=== PATIENT | male | born 1960 | race Caucasian/White ===

== ENCOUNTER → 2017-05-05 | Outpatient (CLI) | payer MEDICARE ==
[~2017-05-05] MED LIST: ASPIRIN 81M81 MG/TA2 PO; BACTRIM DS 8001 TAB PO; COLACE 100100 MG/CAP PO; COZAAR 25MG25 MG/TAB PO; GLUCOSE TEST ST1 DEV MC; INSULIN 70/3100 U/ML SC; IRON325 M1 PO; LEVAQUIN 5500 MG/TA1 PO; LORTAB 7.5/5001 TAB PO; NORCO 325 MG-7.1 TAB PO; NORVASC 5MG5 MG/TAB PO; NOVOLIN 70/30 710 ML SC; NOVOLOG 100U100 U/M1 SC
[2017-05-05 17:07] LABS: BASO # 0.1 (0.0-0.2); BASO % 0.6 % (0.0-2.0); EOS # 0.2 (0.0-0.7); EOS % 1.9 % (0-4.0); GRAN # 6.8 (1.4-6.5); GRAN % 72.3 % (42.2-75.2); LYMPH # 1.9 (1.2-3.4); LYMPH % 19.7 % (20.0-51.0); MEAN CELL VOLUME 90 fl (80.0-100.0); MEAN CORPUSCULAR HGB CONC 32 g/dl (33.0-37.0); MEAN PLATELET VOLUME 10.2 fl (7.4-10.4); MONO # 0.5 (0.1-0.6); MONO % 5.1 % (1.7-9.3); PLATELET COUNT 283 K/mm3 (130-400); RED BLOOD COUNT 3.34 M/mm3 (4.20-5.60); REDCELL DISTRIBUTION WIDTH-CV 13.5 % (11.5-14.5)
[2017-05-05 17:09] LABS: HEMATOCRIT 30.2 % (42.0-52.0); HEMOGLOBIN 9.5 g/dl (13.5-18.0); MEAN CORPUSCULAR HEMOGLOBIN 28 pg (27.0-31.0)
[2017-05-05 17:19] LABS: ALBUMIN 3.5 gm/dL (3.5-5.0); BILIRUBIN,TOTAL 0.1 mg/dL (0.0-1.0); CALCIUM 9.4 mg/dL (8.4-10.2); CREATININE, serum 1.69 mg/dL (0.66-1.25); POTASSIUM 5.1 mmol/L (3.4-5.0); TOTAL PROTEIN 7.2 gm/dL (6.4-8.2)
[2017-05-06 00:25] LABS: FOLATE (FOLIC ACID) 10.3 ng/mL (7.0-31.4)
== END ==
LOC: COL.LAB 14:55
PROVIDERS: Family Medicine
DX: N18.9 Chronic kidney disease, unspecified (principal); D63.1 Anemia in chronic kidney disease

== ENCOUNTER 2023-05-02 04:00 | Inpatient (IN) | payer MEDICARE ==
[~2023-05-02] VITALS: Ht 188 cm; Wt 81.1 kg
[2023-05-02] VITALS (745 sets, daily range): BP systolic 177–212; BP diastolic 86–117; PULSE 67–82; TEMP 97.7–98.2; O2SAT 81–100
[~2023-05-02 04:00] MED LIST changes: +COREG 25MG25 MG/TAB PO; +GINKGO BILOBA40 M5 PO; +NORVASC 10MG10 MG PO; +RENVELA800 MG PO; +SODIUM BICARBO650 MG PO
[2023-05-02] MEDS ORDERED: Albuterol/Ipratropium 3 MG-0.5 MG/3 ML Neb Soln IH PRN (05:30)
[2023-05-02] MEDS ORDERED: Acetaminophen 325 MG TAB PO PRN (05:30)
[2023-05-02] MEDS ORDERED: Heparin/D5W 250 ML IV SCH (05:30)
[2023-05-02] MEDS ORDERED: cefTRIAXone 1 G in Water For Injection,Sterile 10 ML IV SCH (05:30)
[2023-05-02] MEDS ORDERED: Ondansetron 4 MG/2 ML VIAL IV PRN (05:30)
[2023-05-02] MEDS ORDERED: Heparin 5,000 UNITS/ML 1 ML VIAL IV PRN (05:30)
[2023-05-02] MEDS ORDERED: hydrALAZINE 20 MG/ML 1 ML VIAL IV PRN (05:30)
[2023-05-02] MEDS ORDERED: Glucagon 1 MG VIAL IM PRN (06:00)
[2023-05-02] MEDS ORDERED: Dextrose 50% Water 25 GM/50 ML SYRINGE IV PRN (06:00)
[2023-05-02] MEDS ORDERED: Dextrose (Glucose) 15 GM (4 x 3.75 GM) Chewable TABLET PACK PO PRN (06:00)
[2023-05-02 06:20] LABS: BASO # 0.1 K/mm3 (0.0-0.2); BASO % 0.5 % (0.0-2.0); EOS % 0.3 % (0.0-4.0); GRAN # 10.7 K/mm3 (1.4-6.5); GRAN % 89.8 % (42.2-75.2); LYMPH # 0.7 K/mm3 (1.2-3.4); LYMPH % 6.2 % (20.0-51.0); MEAN CELL VOLUME 96 fl (80.0-100.0); MEAN CORPUSCULAR HGB CONC 35 g/dl (33.0-37.0); MEAN PLATELET VOLUME 10.7 fl (7.4-10.4); MONO # 0.3 K/mm3 (0.1-0.6); MONO % 2.9 % (1.7-9.3); PLATELET COUNT 132 K/mm3 (130-400); RED BLOOD COUNT 2.87 M/mm3 (4.20-5.60); REDCELL DISTRIBUTION WIDTH-CV 13.7 % (11.5-14.5)
[2023-05-02 06:21] LABS: HEMATOCRIT 27.4 % (42.0-52.0); HEMOGLOBIN 9.6 g/dl (13.5-18.0); MEAN CORPUSCULAR HEMOGLOBIN 33 pg (27-31)
[2023-05-02 06:28] LABS: ALBUMIN 3.1 gm/dL (3.4-4.8); BILIRUBIN,TOTAL 0.5 mg/dL (0.2-1.2); CALCIUM 8.4 mg/dL (8.4-10.2); CREATININE, serum 9.13 mg/dL (0.72-1.25); MAGNESIUM 2.4 mg/dL (1.6-2.6); POTASSIUM 4.9 mmol/L (3.5-4.5); TOTAL PROTEIN 6.4 gm/dL (6.2-8.1)
[2023-05-02 06:34] LABS: PARTIAL THROMBOPLASTIN TIME 38.5 SECONDS (26.0-37.0)
[2023-05-02 06:38] LABS: TROPONIN-I 0.038 ng/mL (0.00-0.033)
[2023-05-02] MEDS ORDERED: Sevelamer Carbonate 800 MG TAB PO SCH (08:00)
[2023-05-02] MEDS ORDERED: Insulin Lispro (HumaLOG) SQ SCH (08:00)
[2023-05-02] MEDS ORDERED: Carvedilol 25 MG TAB PO SCH (08:00)
[2023-05-02] MEDS ORDERED: amLODIPine 10 MG TAB PO SCH (09:00)
[2023-05-02] MEDS ORDERED: Sennosides/Docusate 8.6-50 MG TAB PO SCH (09:00)
--- NOTE | 2023-05-02 09:25 | NUR ---
HEAD TO TOE ASSESSMENT COMPLETED. PATIENT IS ALERT AND ORIENTED. REPORTS FEELING "MUCH BETTER THAN LAST NIGHT". PUPILS EQUAL AND REACTIVE. HEART SOUNDS REGULAR WITH S1 AND S2 NOTED. PATIENT HAS DIALYSIS PORT TO RIGHT SIDE OF CHEST AND REPORTS HE RECEIVED DIALYSIS // AND DID RECEIVE DIALYSIS LAST TUESDAY (04/28). LUNG SOUNDS CLEAR BILATERALLY. PATIENT TITRATED DOWN FROM 4L NC TO 2L NC. PATIENT ON HEPARIN DRIP AT THIS TIME. BOWEL SOUNDS ACTIVE X4. PATIENT REPORTS HE DOESN'T PRODUCE MUCH URINE ANYMORE. PATIENT'S PULSES PRESENT BILATERALLY IN UPPER AND LOWER EXTREMITIES. PATIENT REFUSED INSULIN THIS MORNING STATING HE DOESN'T CHECK HIS SUGARS OR TAKE INSULIN AT HOME SINCE HE RECEIVED DIALYSIS EVERY OTHER DAY. OTHER MEDICATIONS ADMINISTERED PER EMAR. BED IN A LOW POSITION. CALL LIGHT WITHIN REACH.
--- NOTE | 2023-05-02 09:33 | NUR ---
RECEIVED REPORT FROM NIGHTSHIFT RNJULIANNE. PATIENT RESTING IN BED WITH EYES CLOSED AT THIS TIME. BED IN A LOW POSITION. CALL LIGHT WITHIN REACH.
[2023-05-02] MEDS ORDERED: LASIX 40MG TABL40 MG PO (09:55)
[2023-05-02] MEDS ORDERED: ADVIL200 MG PO (09:56)
[2023-05-02] MEDS ORDERED: LORazepam 0.5 MG TAB PO PRN (10:45)
[2023-05-02] MEDS ORDERED: Albumin (Human) 100 ML IV SCH (11:45)
[2023-05-02] MEDS ORDERED: Heparin 1,000 UNITS/ML 10 ML Multi-Dose VIAL IV SCH (11:45)
--- NOTE | 2023-05-02 13:11 | NUR ---
beam worker met with pt to complete intake information. Pt reports he lives alone in [place], [place]. He sees Dr. Cory Waller for PCP needs. He obtains medications from [facility] with no difficulties. Pt states he is independent with ADLS and has no DME, but recently his back pain has caused more issues getting dressed. Pt states his brother, Johnny [phone] is his best contact and DPOA-HC is on file. SW notes PT/OT are pending Discharge Plan: blanca
--- NOTE | 2023-05-02 15:11 | NUR ---
PATIENT RECEIVED DIALYSIS FROM 1210 TO 1510 IN ROOM. DIALYSIS NURSE, DAVID PRESENT DURING DURATION OF DIALYSIS.
--- NOTE | 2023-05-02 15:58 | NUR ---
Dialysis Note Pt tx performed in ICU. Uf goal set for 5.0 kg and 5.0 kg removed. Pt tolerated tx well. Report given to primary RN.
[2023-05-02] MEDS ORDERED: LORazepam 2 MG/ML 1 ML VIAL IV PRN (20:15)
--- NOTE | 2023-05-02 20:47 | NUR ---
PT AWAKE AND RESTING IN BED. NOTICED PT HAS 1 IN S2 WOUND ON BOTTOM OF LEFT FOOT. DRESSING HAS BEEN CLEANING AND DRESSED. PT ALSO REFUSES ANY INSULIN ADMINISTRATION. VITALS SIGNS STABLE. PLAN OF CARE ONGOING.
[2023-05-03] VITALS (791 sets, daily range): BP systolic 156–194; BP diastolic 67–98; PULSE 60–78; TEMP 97.6–98.7; O2SAT 86–100
[2023-05-03 04:54] LABS: BASO # 0.1 K/mm3 (0.0-0.2); BASO % 1.1 % (0.0-2.0); EOS # 0.1 K/mm3 (0.0-0.7); EOS % 1.7 % (0.0-4.0); GRAN # 4.9 K/mm3 (1.4-6.5); LYMPH % 14.6 % (20.0-51.0); MEAN CELL VOLUME 97 fl (80.0-100.0); MEAN CORPUSCULAR HGB CONC 34 g/dl (33.0-37.0); MONO # 0.5 K/mm3 (0.1-0.6); MONO % 7.3 % (1.7-9.3); PLATELET COUNT 116 K/mm3 (130-400); RED BLOOD COUNT 2.84 M/mm3 (4.20-5.60); REDCELL DISTRIBUTION WIDTH-CV 13.8 % (11.5-14.5)
[2023-05-03 05:00] LABS: HEMATOCRIT 27.4 % (42.0-52.0); HEMOGLOBIN 9.3 g/dl (13.5-18.0); MEAN CORPUSCULAR HEMOGLOBIN 33 pg (27-31)
[2023-05-03 05:17] LABS: CHOLESTEROL RISK RATIO 3.1; CREATININE, serum 6.53 mg/dL (0.72-1.25); MAGNESIUM 2.2 mg/dL (1.6-2.6); POTASSIUM 4.1 mmol/L (3.5-4.5)
[2023-05-03 05:37] LABS: THYROID STIMULATING HORMONE 2.831 uIU/mL (0.350-4.940)
--- NOTE | 2023-05-03 07:46 | NUR ---
OVERALL, PATIENT IS PLEASANT THIS MORNING. ONLY COMPLAINT IS INSOMNIA. BLOOD PRESSURE IS REMAINING IN 180s SYSTOLIC - MORNING BLOOD PRESSURE MEDICATIONS GIVEN; WILL CONTINUE TO MONITOR TO ENSURE A DECREASE IN SYSTOLIC VALUE. WOUNDS NOTED ON BOTTOM OF LEFT FOOT WELL A SMALL SPOT O THE COCCYX. WILL NOTIFY PROVIDER DURING ROUNDS. BED IN LOW POSITION AND CALL LIGHT WITHIN REACH. PATIENT DOES NOT NEED ANYHING AT THIS TIME.
--- NOTE | 2023-05-03 08:10 | NUR ---
PATIENT EXPLAINED TO RN THAT "I GET STAPH EVERY TIME I GO TO WOUND CARE, SO I HAVE JUST STARTED DOING IT MYSELF." RN ASKED PATIENT HOW HE CARES FOR HIS WOUNDS AND PATIENT STATED "I TAKE 100% ALLCOHOL AND PUT IT ON THE WOUND AND THEN TAKE A STRAIGHT RAZOR BLADE AND DEBRIDE IT. IT LOOKS MUCH BETTER IF YOU GET THAT RAISED STUFF OFF OF IT."
--- NOTE | 2023-05-03 09:20 | NUR ---
Initial visit; Patient thanked Vice President Quality for looking in on him and offering Spiritual Care. Patient said he is having trouble sleeping and is trying to sleep sitting up. Vice President Quality wished patient well and offered God's blessings.
[2023-05-03] MEDS ORDERED: Furosemide 40 MG TAB PO SCH (10:30)
--- NOTE | 2023-05-03 10:41 | NUR ---
warm in worker was informed pt will likely discharge tomorrow. ARIN spoke with PT Jaimie who reports pt is safe to discharge home, but she is reccomending a FWW due to unsteadiness. ARIN met with pt who stated he has a FWW and crutches at home. He reports the unsteadiness was due to not having his tennis shoes. Pt reports he has grab bars and a shower chair he utilizes due to missing toes causing balance issues. Pt endorses he feels safe to discharge home and does not need a FWW. Pt went on to state he was waiting to get set up at the pain clinc. SW provide there is a pain clinic in the hospital and provided information on the location. Pt reports he has been having trouble getting seen, so he will stop by once discharged. ARIN further discussed Life Alert device due to pt living alone and his brother not being nearby. Pt states he will look into this on [employer]. Discharge Plan: Home tomorrow
[2023-05-03] MEDS ORDERED: cloNIDine 0.1 MG TAB PO SCH (12:26)
--- NOTE | 2023-05-03 16:32 | NUR ---
PATIENT TRANSFERRED TO MEDICAL FLOOR AT THIS TIME. PATIENT REPORT CALLED TO RNBRETT, BEFORE TRANSFER. PATIENT ON ROOM AIR AND NOT IN DISTRESS AT THIS TIME.
--- NOTE | 2023-05-03 17:00 | NUR ---
PATIENT ARRIVED TO MEDICAL FLOOR FROM ICU AT APPROX 1645. PATIENT IS ALERT AND ORIENTED.
--- NOTE | 2023-05-03 18:41 | NUR ---
THIS NURSE OBTAINED ORDER FOR K PAD, PATIENT WAS COMPLAINING OF BACK PAIN. PATIENT STATES HE IS FRUSTRATED WITH NOT BEING ABLE TO GET STRONGER PAIN MEDICATION THAN TYLENOL.
--- NOTE | 2023-05-03 18:55 | NUR ---
PATIENT RESTING IN BED WITH TV OFF WITH NO FAMILY PRESENT WITH NO ACUTE DISTRESS NOTED. PATIENT ON ROOM AIR. INT TO LEFT FOREARM INTACT WITH NO COMPLICATIONS NOTED. RIGHT IJ DIALYSIS CATHETER INTACT WITH NO COMPLICATIONS NOTED. PATIETN C/O BACK PAIN. K PAD SWITCHED OUT DUE TO LEAKING. NEW K PAD WORKING WITH NO COMPLICATIONS. PATIENT CARE ASSUMED FROM PETEY AT THIS TIME. PATIENT DENIES ANY OTHER NEEDS. BED IN LOW POSITION WITH WHEELS LOCKED WITH RAILS UP X3 AND CALL LIGHT WITHIN REACH.
--- NOTE | 2023-05-03 20:20 | NUR ---
PATIENT RESTING IN BED WITH TV ON WITH NO FAMILY PRESENT WITH NO ACUTE DISTRESS NOTED. PATIENT ON ROOM AIR. ASSESSMENT AND MEDICATION ADMINSITRATION COMPLETED AT THIS TIME. PATIENT TOLERATED WELL. INT TO LEFT FOREARM INTACT WITH NO COMPLICATIONS NOTED. PATIENT REQUEST A COUPLE OF BLANKETS. WARM BLANKET AND REGULAR BLANKET GIVEN. PATIENT DENIES ANY OTHER NEEDS. BED IN LOW POSITION WITH WHEELS LOCKED WITH RAILS UP X3 AND CALL LIGHT WITHIN REACH.
[2023-05-03] MEDS ORDERED: Melatonin 3 MG TAB PO SCH (21:00)
[2023-05-03] MEDS ORDERED: Zolpidem 5 MG TAB PO SCH (21:00)
[2023-05-04 04:03] VITALS: BP 188/86; PULSE 63; TEMP 98.3
--- NOTE | 2023-05-04 05:45 | NUR ---
PATIENT RESTING IN BED WITH TV ON WITH NO ACUTE DISTRESS NOTED. PATIENT ON ROOM AIR. MEDICATION ADMINISTRATION COMPLETED AT THIS TIME. PATIENT TOLERATED WELL. PATIENT REQUESTED CUP OF ICE WATER AND TYLENOL. BOTH GIVEN. PATIENT DENIES ANY OTHER NEEDS AT THIS TIME. BED IN LOW POSITION WITH WHEELS LOCKED WITH RAILS UP X3 AND CALL LIGHT WITHIN REACH.
[2023-05-04] MEDS ORDERED: Heparin 1,000 UNITS/ML 10 ML Multi-Dose VIAL IV SCH (06:30)
[2023-05-04] MEDS ORDERED: Heparin 1,000 UNITS/ML 10 ML Multi-Dose VIAL ICA SCH (06:30)
[2023-05-04] MEDS ORDERED: NS 1,000 ML IV SCH (06:30)
[2023-05-04 06:49] LABS: MEAN CELL VOLUME 101 fl (80.0-100.0); MEAN CORPUSCULAR HGB CONC 32 g/dl (33.0-37.0); MEAN PLATELET VOLUME 11.3 fl (7.4-10.4); PLATELET COUNT 123 K/mm3 (130-400); RED BLOOD COUNT 2.68 M/mm3 (4.20-5.60); REDCELL DISTRIBUTION WIDTH-CV 13.8 % (11.5-14.5)
[2023-05-04 06:50] LABS: HEMATOCRIT 27.1 % (42.0-52.0); HEMOGLOBIN 8.7 g/dl (13.5-18.0); MEAN CORPUSCULAR HEMOGLOBIN 32 pg (27-31)
[2023-05-04 07:01] LABS: CALCIUM 8.6 mg/dL (8.4-10.2); CREATININE, serum 8.94 mg/dL (0.72-1.25); POTASSIUM 4.3 mmol/L (3.5-4.5)
[2023-05-04 07:49] VITALS: BP 182/80; PULSE 59
[2023-05-04] MEDS ORDERED: CATAPRES 0.1MG0.1 MG PO (09:12)
--- NOTE | 2023-05-04 10:48 | NUR ---
Initial visit; Patient out for Dialysis. Clothes Drier Repairer left card offering God's blessings, wishing him well and information regarding the availability of Spiritual Care at [facility].
--- NOTE | 2023-05-04 10:56 | NUR ---
Dialysis Note Pt arrived to tx via WC. Uf goal set for 3.0 kg and incresed to 3.5 d/t HTN. pt tolerated tx well and was dcd back to room.
--- NOTE | 2023-05-04 10:58 | NUR ---
ASSESSMENT COMPLETE. PATIENT RETURNED FROM DIALYSIS, DENIES ANY HEADACHE, DIZZINESS, SHORTNESS OF BREATH. STATES HE IS EAGER TO BE DISCHARGED. SITTING UP IN BED EATING BREAKFAST AT THIS TIME.
[2023-05-04 11:28] VITALS: BP 208/89; PULSE 67; TEMP 97.8
--- NOTE | 2023-05-04 11:52 | NUR ---
PATIENT RECEIVED DISCHARGE PAPERWORK. ACKNOWLEDGED UNDERSTANDING OF FOLLOW UP APPOINTMENTS, MEDICATIONS ADDED. IV DISCONTINUED. PATIENT STATED HIS FRIEND WILL BE PICKING HIM UP. NO ISSUES.
--- NOTE | 2023-05-04 12:09 | NUR ---
DISCHARGE INSTRUCTIONS PROVIDED AND DISCUSSED. ADVISED THAT HIS DIALYSIS CENTER WILL BE CONTACTING HIM TO SCHEDULE HIS VISITS. IV ACCESS DISCONTINUED AT THIS TIME. PATIENT STATED HIS RIDE WILL BE HERE SHORTLY TO PICK HIM UP AND HE WILL LET US KNOW WHEN THEY ARRIVE
--- NOTE | 2023-05-04 12:35 | NUR ---
1200-PATIENT DISCHARGED AND ESCORTED TO EXIT BY NURSING STAFF
== END 2023-05-04 12:00 | disposition home or self-care (01) | DRG 640 ==
LOC: IMCU 04:00 → ICU 04:54 → MEDICAL 05-03 16:45
PROVIDERS: Internal Medicine; Physician Assistant; ADMIT Internal Medicine
PROC: 5A1D70Z Performance of Urinary Filtration, Intermittent, Less than 6 Hours Per Day (ICD-10-PCS; principal; 2023-05-02)
DX: E87.70 Fluid overload, unspecified (principal); J81.0 Acute pulmonary edema; J96.01 Acute respiratory failure with hypoxia; N18.6 End stage renal disease; I12.0 Hypertensive chronic kidney disease with stage 5 chronic kidney disease or end stage renal disease; R79.89 Other specified abnormal findings of blood chemistry; D72.829 Elevated white blood cell count, unspecified; E11.22 Type 2 diabetes mellitus with diabetic chronic kidney disease; I08.1 Rheumatic disorders of both mitral and tricuspid valves; I16.0 Hypertensive urgency; Z99.2 Dependence on renal dialysis; Z79.82 Long term (current) use of aspirin; Z79.899 Other long term (current) drug therapy
CPT/HCPCS: J0360; J0696; J1644; J1815; J2060; J7030; P9047; Q3014

== ENCOUNTER 2023-06-28 11:52 | Day surgery (SDC) | payer MEDICARE ==
[~2023-06-28] VITALS: Ht 188 cm; Wt 78.2 kg
[~2023-06-28 11:52] MED LIST changes: +ADVIL200 MG PO; +CATAPRES 0.1MG0.1 MG PO; +LASIX 40MG TABL40 MG PO; +NS 1,000 ML IV SCH
[2023-06-28] MEDS ORDERED: ADVIL200 MG PO (12:30)
[2023-06-28 13:00] VITALS: BP 191/87; PULSE 59; TEMP 97.9
[2023-06-28 13:10] LABS: CALCIUM 9.4 mg/dL (8.4-10.2); CREATININE, serum 7.15 mg/dL (0.72-1.25); POTASSIUM 5.2 mEq/L (3.5-4.5)
[2023-06-28] MEDS ORDERED: fentaNYL 50 MCG/ML 2 ML VIAL ONE (13:14)
[2023-06-28] MEDS ORDERED: Ondansetron 4 MG/2 ML VIAL ONE (13:17)
[2023-06-28] MEDS ORDERED: NS 10 ML IV ONE (13:17)
[2023-06-28] MEDS ORDERED: dexAMETHasone 10 MG/ML VIAL ONE (13:17)
[2023-06-28] MEDS ORDERED: Lidocaine PF 2% (20 MG/ML) 5 ML VIAL ONE (13:17)
[2023-06-28] MEDS ORDERED: Glycopyrrolate 0.2 MG/ML 1 ML VIAL ONE (13:17)
[2023-06-28] MEDS ORDERED: fentaNYL 50 MCG/ML 1 ML SYRINGE/VIAL [PACU/SDC ONLY] IV PRN (14:00)
[2023-06-28] MEDS ORDERED: droPERidol 2.5 MG/ML 2 ML VIAL IV PRN (14:00)
[2023-06-28] MEDS ORDERED: HYDROmorphone 1 MG/1 ML SYRINGE [PACU/SDC ONLY] IV PRN (14:00)
[2023-06-28] MEDS ORDERED: Ondansetron 4 MG/2 ML VIAL IV PRN ×2 (14:00→15:15)
[2023-06-28] MEDS ORDERED: hydrALAZINE 20 MG/ML 1 ML VIAL IV PRN (14:00)
[2023-06-28] MEDS ORDERED: Topical Skin Adhesive 1 EACH (1 ML) TOP ONE (15:00)
[2023-06-28 15:07] VITALS: BP 127/63; PULSE 59; TEMP 98.6
[2023-06-28] MEDS ORDERED: NORCO 325 MG-51 TAB PO (15:10)
[2023-06-28 15:15] VITALS: BP 129/82; PULSE 58
[2023-06-28] MEDS ORDERED: Acetaminophen 325 MG TAB PO PRN (15:15)
[2023-06-28 15:30] VITALS: BP 172/68; PULSE 61
[2023-06-28 15:45] VITALS: BP 171/61; PULSE 61
--- NOTE | 2023-06-28 16:33 | NUR ---
1507 Patient returned to bay 8. Received report from SLIM Dillard and Ryan Castillo CRNA. Patient is drowsey, but wakes and answers questions appropriately. 1520 Patient given water, Coke and ice-cream for a PO challenge. Tolerated well. 1605Physician discharge instructions and printed patient educational materials reviewed with the patient. Questions invited and answered. Patient to lobby via wheelchair for a ride home with friend in [place].
== END 2023-06-28 16:15 | disposition home or self-care (01) ==
LOC: SDCO 11:52
PROVIDERS: Surgery
DX: I12.0 Hypertensive chronic kidney disease with stage 5 chronic kidney disease or end stage renal disease (principal); N18.6 End stage renal disease; Z79.82 Long term (current) use of aspirin; Z99.2 Dependence on renal dialysis
CPT/HCPCS: J0665; J0690; J1100; J1644; J2405; J2704; J3010; J7030

== ENCOUNTER 2023-08-11 08:27 | Day surgery (SDC) | payer MEDICARE ==
[~2023-08-11] VITALS: Ht 177.8 cm; Wt 76.0 kg
[2023-08-11] VITALS (7 sets, daily range): BP systolic 178–192; BP diastolic 67–77; PULSE 58–66; TEMP 97.5–97.6
[~2023-08-11 08:27] MED LIST changes: +LR 1,000 ML IV SCH; +NORCO 325 MG-51 TAB PO; -NS 1,000 ML IV SCH
[2023-08-11 10:01] LABS: CALCIUM 9.7 mg/dL (8.4-10.2); CREATININE, serum 6.82 mg/dL (0.72-1.25); POTASSIUM 4.3 mEq/L (3.5-4.5)
[2023-08-11] MEDS ORDERED: fentaNYL 50 MCG/ML 2 ML VIAL ONE (10:13)
[2023-08-11] MEDS ORDERED: Rocuronium 50 MG/5 ML Multi-Dose VIAL ONE ×2 (10:13→11:12)
[2023-08-11] MEDS ORDERED: Lidocaine PF 2% (20 MG/ML) 5 ML VIAL ONE (10:13)
[2023-08-11] MEDS ORDERED: dexAMETHasone 10 MG/ML VIAL ONE (10:13)
[2023-08-11] MEDS ORDERED: Ondansetron 4 MG/2 ML VIAL ONE (10:13)
[2023-08-11] MEDS ORDERED: Topical Skin Adhesive 1 EACH (1 ML) TOP ONE (11:17)
[2023-08-11] MEDS ORDERED: Acetaminophen 325 MG TAB PO PRN (12:00)
[2023-08-11] MEDS ORDERED: HYDROmorphone 1 MG/1 ML SYRINGE [PACU/SDC ONLY] IV PRN (12:15)
[2023-08-11] MEDS ORDERED: hydrALAZINE 20 MG/ML 1 ML VIAL IV PRN (12:15)
--- NOTE | 2023-08-11 15:00 | NUR ---
1250-PT TO BAY 7 PER CART FROM PACU. REPORT RECEIVED. VS OBTAINED. CALL LIGHT WITHIN REACH. PT RESTING. DENIES ANY NEEDS. 1310-PT RESTING COMFORTABLY AND DENIES ANY NEEDS. 1335-PT TOLERATING ICE CHIPS. 1345-PT TOLERATING ICE CREAM. 1400-PT STATES MILD NAUSEA. DENIES ANY NEEDS. 1435-IV DC'D AT THIS TIME. 1440-DISCHARGE EDUCATION COMPLETED WITH PT. VERBALIZED UNDERSTANDING OF HOME AND FOLLOW UP CARE. ALL QUESTIONS ANSWERED. DISCHARGE PAPERWORK GIVEN TO PT. PT ABLE TO DRESS SELF WITHOUT ASSISTANCE. 1500-PT OFF UNIT PER WHEELCHAIR. PT DISCHARGED TO HOME WITH FAMILY PER PERSONAL VEHICLE.
== END 2023-08-11 15:00 | disposition home or self-care (01) ==
LOC: SDCO 08:27
PROVIDERS: Nurse Anesthetist, Certified Registered
DX: K40.90 Unilateral inguinal hernia, without obstruction or gangrene, not specified as recurrent (principal); I12.0 Hypertensive chronic kidney disease with stage 5 chronic kidney disease or end stage renal disease; N18.6 End stage renal disease; E11.22 Type 2 diabetes mellitus with diabetic chronic kidney disease; Z79.899 Other long term (current) drug therapy; Z79.4 Long term (current) use of insulin
CPT/HCPCS: C1781; J0360; J0690; J1100; J1170; J2405; J2704; J3010; J7120